=== PATIENT | female | born 1955 | race Caucasian/White ===

== ENCOUNTER 2017-03-01 05:30 | Observation (INO) | payer BC ==
[~2017-03-01] VITALS: Ht 160 cm; Wt 87.0 kg
[2017-03-01] VITALS (11 sets, daily range): BP systolic 111–154; BP diastolic 53–83; PULSE 57–71; TEMP 97.5–98.7
[~2017-03-01 05:30] MED LIST: ANTIVERT 25MG25 MG PO; PRINZIDE 12.5 M1 TA1 PO; VALIUM 5MG T5 MG/TAB PO; ZOFRAN 4MG T4 MG/TAB PO
[2017-03-01] MEDS ORDERED: COREG 6.256.25 MG/TA PO ×2 (06:47→06:48)
[2017-03-01] MEDS ORDERED: PRILOSEC 20MG20 MG PO (06:48)
[2017-03-01] MEDS ORDERED: CEPHALEXIN500 M1 PO (06:49)
[2017-03-01] MEDS ORDERED: MELATONIN5 M1 SL (06:49)
[2017-03-01] MEDS ORDERED: ADVIL200 MG PO (06:49)
[2017-03-01] MEDS ORDERED: FLONASEALLERGY NS (06:50)
[2017-03-01] MEDS ORDERED: CENTRUM1 TA1 PO (06:50)
[2017-03-02 01:37] VITALS: BP 163/85; PULSE 63; TEMP 97.2
[2017-03-02 04:48] VITALS: BP 126/67; PULSE 66; TEMP 98.6
[2017-03-02 09:55] VITALS: BP 121/60; PULSE 68; TEMP 98.4
[2017-03-02 14:11] VITALS: BP 110/54; PULSE 68; TEMP 98.1
[2017-05-31] MEDS ORDERED: HYGROTON 2525 MG/TAB PO (08:46)
[2017-05-31] MEDS ORDERED: PRINIVIL40 MG PO (08:46)
== END 2017-03-02 15:16 | disposition home or self-care (01) ==
LOC: SDCO 05:30 → SURG 10:44 → SDCO 10:46 → SURG 03-02 15:16
DX: N99.3 Prolapse of vaginal vault after hysterectomy (principal); N81.11 Cystocele, midline; I10 Essential (primary) hypertension; Z87.891 Personal history of nicotine dependence; Z80.0 Family history of malignant neoplasm of digestive organs; Z80.3 Family history of malignant neoplasm of breast; Z96.653 Presence of artificial knee joint, bilateral
CPT/HCPCS: A4315; A9284; C1713; C1781; G0378; J0690; J1100; J1885; J2270; J2405; J2704; J2710; J2765; J3010; J7120

== ENCOUNTER → 2017-05-31 | Day surgery (SDC) | payer BC ==
[~2017-05-31] VITALS: Ht 160 cm; Wt 84.6 kg
[~2017-05-31] MED LIST changes: +ADVIL200 MG PO; +CENTRUM1 TA1 PO; +CEPHALEXIN500 M1 PO; +COREG 6.256.25 MG/TA PO; +FLONASEALLERGY NS; +HYGROTON 2525 MG/TAB PO; +MELATONIN5 M1 SL; +PRILOSEC 20MG20 MG PO; +PRINIVIL40 MG PO
[2017-05-31 09:07] VITALS: BP 151/98; PULSE 75; TEMP 97.7
[2017-05-31 10:25] VITALS: BP 136/76; PULSE 75; TEMP 98.2
[2017-05-31 10:45] VITALS: BP 126/75; PULSE 71
[2017-05-31 11:00] VITALS: BP 113/61; PULSE 71
== END ==
LOC: SDCO 08:25
DX: D12.5 Benign neoplasm of sigmoid colon (principal); K57.30 Diverticulosis of large intestine without perforation or abscess without bleeding; K64.0 First degree hemorrhoids; I10 Essential (primary) hypertension; Z90.710 Acquired absence of both cervix and uterus
CPT/HCPCS: OP; J2250; J2405; J3010; J7030